=== PATIENT | female | born 1965 | race African-American/Black ===

== ENCOUNTER 2017-08-11 14:18 | Inpatient (IN) | payer OTHER, SELFPAY ==
[2017-08-11 14:51] LABS: Absolute Monocytes 0.8 K/uL (0.1-1.3); Absolute Neutrophil 10.6 K/uL (1.8-8.0); Basophils % 0.8 % (0-1.3); Eosinophils % 0.1 % (0-4.4); Hematocrit 37.4 % (36.0-45.0); Lymphocytes % 8.1 % (15.3-44.8); MCH 29.7 pg (27.0-35.0); MCV 91.3 fL (80-100); MPV 9.9 fL (7.6-11.3); Monocytes % 6.7 % (3.3-12.3)
[2017-08-11 14:56] LABS: Protime INR 1.18
[2017-08-11 15:01] LABS: Bicarbonate 23 mEq/L (21-31); Glucose Level 108 mg/dL (65-120); Sodium Level 136 mEq/L (135-145)
[2017-08-11 15:07] LABS: ALT/SGPT 12 IU/L (10-60); AST/SGOT 21 IU/L (10-42); Albumin 3.4 g/dL (3.2-5.5); Alkaline Phosphatase 110 IU/L (42-121); BUN Blood Urea Nitrogen 5 mg/dL (6-20); Bilirubin Direct 0.2 mg/dL (0-0.2); Bilirubin Total 0.8 mg/dL (0.3-1.2); Magnesium 1.8 mg/dL (1.8-2.5); Protein, Total 8.7 g/dL (6.0-8.3)
--- NOTE | 2017-08-11 15:22 | RAD REPORT ---
EXAM DESCRIPTION: Natalia Single View08/11/2017 3:15 pm CLINICAL HISTORY: Cough COMPARISON: none FINDINGS: Right upper lobe consolidation is present with mild volume loss. The remainder of the lung s appear clear. The heart is normal size IMPRESSION: Right upper lobe consolidation likely representing pneumonia. This should be followed un til it is clear to exclude a post obstructive process/underlying mass
--- NOTE | 2017-08-11 15:49 | EKG ---
Test Date: 2017-08-11 Test Time: 14:49:25 Spring Encaser: MEASUREMENT RESULTS: Intervals: Rate: 109 SC: 166 QRSD: 72 QT: 342 QTc: 460 [place]: P: 68 SC: 166 QRS: 77 T: 70 INTERPRETIVE STATEMENTS: Sinus tachycardia Otherwise normal ECG No previous ECG available for comparison Electronically Signed On 08-11-17 15:48:49 CDT by Tai Parker
[2017-08-11] MEDS ORDERED: Levofloxacin 750mg IV 750 MG/150 ML BAG IV ONE (16:28)
--- NOTE | 2017-08-11 16:31 | ER ---
Nurse's Notes [facility] Name: Laura Morales Age: 52 yrs Sex: Female : 1965 Arrival Date: 08/11/2017 Time: 14:19 Bed 28 Private MD: Diagnosis: Pneumonia due to other specified bacteria;Tuberculosis of lung-possible Presentation: 08/11 14:30 Presenting complaint: Patient states: was seen at urgent care and had CXR done, Health iw dept sent pt to ER for possible TB, pt states they told her it was either cancer, TB or something else. Transition of care: patient was not received from another setting of care. Onset of symptoms was August 11, 2017. Initial Sepsis Screen: Does the patient meet any 2 criteria? No. Patient's initial sepsis screen is negative. Does the patient have a suspected source of infection? No. Patient's initial sepsis screen is negative. Care prior to arrival: None. 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 - Social history:: Smoking status: Patient/guardian denies using tobacco. Screenin:15 Abuse screen: Denies threats or abuse. Denies injuries from another. Nutritional kr2 screening: No deficits noted. Tuberculosis screening: Possible symptoms: recent bloody sputum. Fall Risk IV access (20 points). Assessment: 15:15 General: Appears in no apparent distress. comfortable, well groomed, well developed, kr2 well nourished, Behavior is calm, cooperative, appropriate for age. Pain: Denies pain. Neuro: Level of Consciousness is awake, alert, obeys commands, Oriented to person, place, time, situation. Cardiovascular: Capillary refill < 3 seconds in bilateral fingers Patient's skin is warm and dry. Respiratory: Airway is patent Respiratory effort is even, unlabored, Respiratory pattern is regular, symmetrical, Parent/caregiver reports the patient having cough that is productive, blood in sputum. GI: Abdomen is flat, non-distended. : No signs and/or symptoms were reported regarding the genitourinary system. EENT: Nares are clear bilaterally Oral mucosa is moist. Derm: Skin is intact, is healthy with good turgor, Skin is pink, warm \T\ dry. Musculoskeletal: Circulation, motion, and sensation intact. 16:30 Reassessment: Patient appears in no apparent distress at this time. Patient and/or kr2 family updated on plan of care and expected duration. Pain level reassessed. Patient is alert, oriented x 3, equal unlabored respirations, skin warm/dry/pink. Patient denies pain at this time. 17:39 Reassessment: Patient appears in no apparent distress at this time. Patient and/or kr2 family updated on plan of care and expected duration. Pain level reassessed. Patient is alert, oriented x 3, equal unlabored respirations, skin warm/dry/pink. Patient denies pain at this time. 18:00 Reassessment: Patient appears in no apparent distress at this time. Patient and/or kr2 family updated on plan of care and expected duration. Pain level reassessed. Patient is alert, oriented x 3, equal unlabored respirations, skin warm/dry/pink. Given sandwich and sprite to drink Patient denies pain at this time. 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 19:25 Reassessment: Patient appears in no apparent distress at this time. Patient and/or kr2 family updated on plan of care and expected duration. Pain level reassessed. Patient is alert, oriented x 3, equal unlabored respirations, skin warm/dry/pink. Patient denies pain at this time. 20:33 Reassessment: Patient states she has not been coughing up as much blood this evening. kr2 Vital Signs: 14:41 BP 127 / 88; Pulse 110; Resp 18 S; Pulse Ox 100% on R/A; iw 15:00 BP 121 / 78; Pulse 107; Resp 16; Temp 98.1(O); Pulse Ox 100% on R/A; kr2 16:55 BP 124 / 75; Pulse 97; Resp 16; Temp 98.9(O); Pulse Ox 100% on R/A; kr2 17:40 BP 126 / 76; Pulse 98; Resp 15; Temp 98.5(O); Pulse Ox 99% on R/A; kr2 19:00 BP 117 / 80; Pulse 100; Resp 16; Temp 98.7(O); Pulse Ox 98% on R/A; kr2 20:26 BP 129 / 81; Pulse 109; Resp 15; Temp 99(O); Pulse Ox 100% on R/A; kr2 ED Course: 14:19 Patient arrived in ED. iw 14:25 Isra Corcoran PA is PHCP. jr8 14:25 Avel Hong MD is Attending Physician. jr8 14:25 Inserted saline lock: 20 gauge in right antecubital area, using aseptic technique. jb1 Blood collected. 14:41 Triage completed. iw 14:52 Jackie Hilliard, ERROL is Primary Nurse. kr2 15:00 Airborne Precautions. kr2 15:14 XRAY Chest (1 view) In Process Unspecified. EDMS 15:15 Arm band placed on. kr2 15:15 Patient has correct armband on for positive identification. Bed in low position. Call kr2 light in reach. Side rails up X2. Pulse ox on. NIBP on. Door closed. Warm blanket given. Head of bed elevated. 16:29 Margo Anderson MD is Hospitalizing Provider. jr8 16:48 sputum culture collected and sent to lab. kr2 20:30 No provider procedures requiring assistance completed. Patient admitted, IV remains in kr2 place. Administered Medications: 16:48 Drug: LevaQUIN 750 mg Volume: 150 ml; Route: IVPB; Infused Over: 90 mins; Site: left kr2 antecubital; 18:30 Follow up: Response: No adverse reaction; IV Status: Completed infusion kr2 Outcome: 16:30 Decision to Hospitalize by Provider. jr8 20:30 Admitted to Tele accompanied by tech, via wheelchair, room 417, with chart, Other kr2 Patient with mask on for airborne precautions Report called to ERROL Fuentes 20:30 Condition: stable 20:30 Instructed on the need for admit, Demonstrated understanding of instructions. 20:47 Patient left the ED. kr2 Signatures: Dispatcher [employer] EDMS Alfredo Laureano jb1 Liseth Florez RN RN iw Isra Corcoran PA PA jr8 Jackie Hilliard RN RN kr2 Corrections: (The following items were deleted from the chart) 14:43 14:30 Initial Sepsis Screen: Does the patient meet any 2 criteria? No. Patient's iw initial sepsis screen is negative. Does the patient have a suspected source of infection? No. Patient's initial sepsis screen is negative. iw 20:28 15:00 BP 121 / 78; Pulse 107bpm; Resp 16bpm; Pulse Ox 100% RA; kr2 kr2 20:28 17:40 BP 126 / 76; Pulse 98bpm; Resp 15bpm; Pulse Ox 99% RA; kr2 kr2 20:28 19:25 BP 129 / 81; Pulse 109bpm; Resp 15bpm; Pulse Ox 100% RA; kr2 kr2 08/12 01:24 08/11 16:55 BP 124 / 75; Pulse 97bpm; Resp 16bpm; Pulse Ox 100% RA; kr2 kr2 08/12 01:24 08/11 19:00 BP 117 / 80; Pulse 100bpm; Resp 16bpm; Pulse Ox 98% RA; kr2 kr2
--- NOTE | 2017-08-11 16:31 | EDPHYS ---
Physician Documentation [facility] Name: Laura Morales Age: 52 yrs Sex: Female : 1965 Arrival Date: 08/11/2017 Time: 14:19 Bed 28 Private MD: ED Physician Avel Hong HPI: 08/11 16:14 This 52 yrs old Black Female presents to ER via Ambulatory with complaints of Cough. jr8 16:14 The patient or guardian reports cough, that is intermittent, described as moderate, jr8 with productive sputum, that is bloody. Onset: The symptoms/episode began/occurred gradually, 4 week(s) ago. Severity of symptoms: At their worst the symptoms were moderate, in the emergency department the symptoms are unchanged. Modifying factors: The symptoms are alleviated by nothing, the symptoms are aggravated by nothing. Associated signs and symptoms: The patient has no apparent associated signs or symptoms. The patient has not experienced similar symptoms in the past. The patient has been recently seen by a physician:. Patient stated that she was diagnosed with influenza about 4 weeks ago. Had gotten over illness but still has had cough since then. Yesterday she noticed after coughing that she had blood in sputum. Continued to have bloody sputum today. Went to [place] and had blood work and CT done. Differential given was TB vs pneumonia vs mass. Patient stated that she had possible positive PPD in the 80s but had CXR done at that same time with negative results. 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 Last one was 1 year ago . 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 - Social history:: Smoking status: Patient/guardian denies using tobacco. ROS: 16:14 Eyes: Negative for injury, pain, redness, and discharge, ENT: Negative for injury, jr8 pain, and discharge, Neck: Negative for injury, pain, and swelling, Cardiovascular: Negative for chest pain, palpitations, and edema, Abdomen/GI: Negative for abdominal pain, nausea, vomiting, diarrhea, and constipation, Back: Negative for injury and pain, MS/Extremity: Negative for injury and deformity, Skin: Negative for injury, rash, and discoloration, Neuro: Negative for headache, weakness, numbness, tingling, and seizure. 16:14 Respiratory: Positive for cough, hemoptysis, Negative for dyspnea on exertion, shortness of breath. Exam: 16:14 Head/Face: Normocephalic, atraumatic. Eyes: Pupils equal round and reactive to light, jr8 extra-ocular motions intact. Lids and lashes normal. Conjunctiva and sclera are non-icteric and not injected. Cornea within normal limits. Periorbital areas with no swelling, redness, or edema. ENT: Nares patent. No nasal discharge, no septal abnormalities noted. Tympanic membranes are normal and external auditory canals are clear. Oropharynx with no redness, swelling, or masses, exudates, or evidence of obstruction, uvula midline. Mucous membranes moist. Neck: Trachea midline, no thyromegaly or masses palpated, and no cervical lymphadenopathy. Supple, full range of motion without nuchal rigidity, or vertebral point tenderness. No Meningismus. Cardiovascular: Regular rate and rhythm with a normal S1 and S2. No gallops, murmurs, or rubs. Normal PMI, no JVD. No pulse deficits. Respiratory: Lungs have equal breath sounds bilaterally, clear to auscultation and percussion. No rales, rhonchi or wheezes noted. No increased work of breathing, no retractions or nasal flaring. Abdomen/GI: Soft, non-tender, with normal bowel sounds. No distension or tympany. No guarding or rebound. No evidence of tenderness throughout. Back: No spinal tenderness. No costovertebral tenderness. Full range of motion. Skin: Warm, dry with normal turgor. Normal color with no rashes, no lesions, and no evidence of cellulitis. MS/ Extremity: Pulses equal, no cyanosis. Neurovascular intact. Full, normal range of motion. Neuro: Awake and alert, GCS 15, oriented to person, place, time, and situation. Cranial nerves II-XII grossly intact. Motor strength 5/5 in all extremities. Sensory grossly intact. Cerebellar exam normal. Normal gait. Vital Signs: 14:41 BP 127 / 88; Pulse 110; Resp 18 S; Pulse Ox 100% on R/A; iw 15:00 BP 121 / 78; Pulse 107; Resp 16; Temp 98.1(O); Pulse Ox 100% on R/A; kr2 16:55 BP 124 / 75; Pulse 97; Resp 16; Temp 98.9(O); Pulse Ox 100% on R/A; kr2 17:40 BP 126 / 76; Pulse 98; Resp 15; Temp 98.5(O); Pulse Ox 99% on R/A; kr2 19:00 BP 117 / 80; Pulse 100; Resp 16; Temp 98.7(O); Pulse Ox 98% on R/A; kr2 20:26 BP 129 / 81; Pulse 109; Resp 15; Temp 99(O); Pulse Ox 100% on R/A; kr2 MDM: 14:25 Patient medically screened. jr8 16:18 Data reviewed: vital signs, nurses notes, diagnostic data from outside facility, lab jr8 test result(s), EKG, radiologic studies, CT scan, plain films, and as a result, I will admit patient. Data interpreted: Pulse oximetry: on room air is 100 %. Interpretation: normal. Counseling: I had a detailed discussion with the patient and/or guardian regarding: the historical points, exam findings, and any diagnostic results supporting the discharge/admit diagnosis, lab results, radiology results, the need for further work-up and treatment in the hospital. 16:29 Physician consultation: Margo Anderson MD was called at 16:29, was contacted at 16:29, jr8 regarding admission, to the telemetry unit. consult, patient's condition, and will see patient. 08/11 14:32 Order name: Basic Metabolic Panel; Complete Time: :08/11 14:32 Order name: BNP; Complete Time: 15:08/11 14:32 Order name: CBC with Diff; Complete Time: 15:08/11 14:32 Order name: LFT's; Complete Time: 15: 08/11 14:32 Order name: Magnesium; Complete Time: 15: 08/11 14:32 Order name: PT-INR; Complete Time: 15:08/11 14:32 Order name: Ptt, Activated; Complete Time: 15: 08/11 14:32 Order name: Troponin (emerg Dept Use Only); Complete Time: 15:08/11 14:32 Order name: XRAY Chest (1 view); Complete Time: 15:25 [facility] 08/11 14:38 Order name: Blood Culture Adult (2) [facility] 08/11 16:06 Order name: Sputum Culture [facility] 08/11 16:31 Order name: Acid Fast Bacilli Culture [facility] 08/11 20:42 Order name: Urine Dipstick--Ancillary (enter results) 08/11 14:32 Order name: IV; Complete Time: 14:53 [facility] 08/11 14:32 Order name: EKG; Complete Time: 14:33 [facility] 08/11 14:32 Order name: Cardiac monitoring; Complete Time: 14:53 [facility] 08/11 14:32 Order name: EKG - Nurse/Tech; Complete Time: 17:42 [facility] 08/11 14:32 Order name: Labs collected and sent; Complete Time: 14:53 [facility] 08/11 14:32 Order name: O2 Per Protocol; Complete Time: 14:53 [facility] 08/11 14:32 Order name: O2 Sat Monitoring; Complete Time: 14:53 [facility] Administered Medications: 16:48 Drug: LevaQUIN 750 mg Volume: 150 ml; Route: IVPB; Infused Over: 90 mins; Site: left kr2 antecubital; 18:30 Follow up: Response: No adverse reaction; IV Status: Completed infusion kr2 Disposition: 08/11/17 16:30 Hospitalization ordered by Margo Anderson for Inpatient Admission. Preliminary diagnosis are Pneumonia due to other specified bacteria, Tuberculosis of lung - possible. - Bed requested for Telemetry/MedSurg (Inpatient). - Status is Inpatient Admission. kr2 - Condition is Stable. - Problem is new. - Symptoms are unchanged. UTI on Admission? No Addendum: 08/26/2017 19:56 Co-signature as Attending Physician, Avel Hong MD I agree with the assessment and k dr plan of care. Signatures: Dispatcher [employer] [facility] Shantel Kaur Kevin, MD MD [facility] Isra Corcoran PA PA jr8 Maribel Hanley RN RN Jackie Carter RN RN kr2 Corrections: (The following items were deleted from the chart) 08/11 16:18 16:14 Patient stated that she was diagnosed with influenza about 4 weeks ago. Had 8 gotten over illness but still has had cough since then. Yesterday she noticed after coughing that she had blood in sputum. Continued to have bloody sputum today. Went to [facility] and had blood work and CT done. Differential given was TB vs pneumonia vs mass . jr8 16:31 16:13 Miscellaneous Lab Test+R.LAB.BRZ ordered. EDMS EDMS 16:51 16:30 Hospitalization Ordered by Margo Anderson MD for Inpatient Admission. Preliminary bd diagnosis is Pneumonia due to other specified bacteria; Tuberculosis of lung - possible. Bed requested for Telemetry/MedSurg (Inpatient). Status is Inpatient Admission. Condition is Stable. Problem is new. Symptoms are unchanged. UTI on Admission? No. jr8 18:25 16:51 08/11/2017 16:30 Hospitalization Ordered by Margo Anderson MD for Inpatient df Admission. Preliminary diagnosis is Pneumonia due to other specified bacteria; Tuberculosis of lung - possible. Bed requested for Telemetry/MedSurg (Inpatient). Status is Inpatient Admission. Condition is Stable. Problem is new. Symptoms are unchanged. UTI on Admission? No. bd 20:47 18:25 08/11/2017 16:30 Hospitalization Ordered by Margo Anderson MD for Inpatient kr2 Admission. Preliminary diagnosis is Pneumonia due to other specified bacteria; Tuberculosis of lung - possible. Bed requested for Telemetry/MedSurg (Inpatient). Status is Inpatient Admission. Condition is Stable. Problem is new. Symptoms are unchanged. UTI on Admission? No. df
[2017-08-11] MEDS ORDERED: ONDANSETRON 4 MG/2 ML VIAL IV PRN (21:04)
[2017-08-11] MEDS ORDERED: VANCOMYCIN 1.25 GM in NA CHLORIDE 0.9% 250 ML IV SCH (21:04)
[2017-08-11] MEDS ORDERED: CEFEPIME 2 GM VIAL IV SCH (21:04)
[2017-08-11] MEDS ORDERED: ALBUTEROL 2.5 MG/3 ML NEB SOL NEB PRN (21:04)
[2017-08-11] MEDS ORDERED: IPRATROPIUM BROM 0.5MG/2.5ML NEB PRN (21:04)
[2017-08-11] MEDS ORDERED: VANCOMYCIN 1 GM/VIAL ONE (21:36)
[2017-08-11] MEDS ORDERED: NA CHLORIDE 0.9% 250 ML ONE (21:37)
[2017-08-11] MEDS ORDERED: CEFEPIME 2 GM/200 ML BAG IV ONE (21:37)
[2017-08-11] MEDS ORDERED: VANCOMYCIN 500 MG/VIAL ONE (21:38)
[2017-08-11] MEDS: VANCOMYCIN 1.25 GM in NA CHLORIDE 0.9% 250 ML IV SCH (22:00)
[2017-08-11] MEDS: NA CHLORIDE 0.9% 1,000 ML IV SCH (22:01)
[2017-08-11] MEDS ORDERED: CEFEPIME 2 GM/100 ML BAG IV ONE (23:00)
[2017-08-11 23:02] VITALS: BMI 25.6
--- NOTE | 2017-08-12 03:52 | HP ---
Date of Admission: 08/11/2017 Chief Complaint: Shortness of breath and sent from [place] [facility] for a right upper lobe conso lidation and hemoptysis. [employer] Senior Specialist: Calvin Cr M.D., Pulmonology. History Of Present Illness: The patient is a 52-year-old female with no significant past medical his tory other than nicotine dependence, who comes in with 1 month of dry cough that has been persistent. The patient states that she was diagnosed with flu; at that time, was treated; and since then, has not had any relief from her cough. She has tried multiple medications including antibiotics and over -the-counter medications. She denies any significant shortness of breath, fever, chills, or any ill contacts. 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 The patient did have some ep isode of hemoptysis, tablespoonful, which prompted her to come to the ER. The patient initially went to the [place] [facility]. She came in as her symptoms were constant, moderate, and progressively worsening. No alleviating or aggravating factors. At [place], CT scan was done, which showed a large right-sided consolidation. The patient was, therefore, transferred to [facility] for further ayan luation. Upon arrival, the patient's vital signs were stable. She was afebrile. Her O2 saturations were 100%. Her workup was essentially negative. White count was mildly elevated at 12.5 with neutr ophilia. Repeat chest x-ray did show a right-sided consolidation of the upper lobe. The patient was then started on IV antibiotics and referred for admission. When the patient was seen in the ER, she was awake, alert, oriented x3, in some mild distress. Past Medical History: None. Past Surgical History: None. Allergies: NO KNOWN DRUG ALLERGIES. Medications: None. Family History: Hypertension and diabetes. Father of lung cancer. Heart disease and hypertens ion also run in the family. Social History: The patient smokes half a pack of cigarettes per day for the past 30 years. Does re port occasional beer, not a daily drinker. No illicit drug use. Review of Systems: An 11-point system reviewed and negative except as per HPI. Physical Examination: Vital Signs: Blood pressure 127/88, pulse 110, respirations 18, and O2 100% on room air. General: Awake, alert, and oriented x3, in some mild distress. HEENT: Normocephalic, atraumatic. PERRLA. EOMI. Moist mucous membranes. Oropharynx is clear. Co njunctivae are anicteric. Neck: Supple. No JVD. Trachea midline. CV: S1, S2. Sinus tachycardia. Peripheral pulses present. No murmurs. Respiratory: Diminished breath sounds, right upper lobe. Otherwise, moving air well. No wheezing. No rhonchi. No crackles. Gastrointestinal: Abdomen is soft, nontender, and nondistended. Positive bowel sounds. No guarding or rigidity. Extremities: No clubbing, cyanosis, or edema. No calf tenderness. Neurologic: Cranial nerves 2 through 12 are intact grossly. No focal neurological deficit. Speech is normal. Strength is 5/5, bilateral upper and lower extremities. Skin: No rashes. Normal skin turgor. Psychiatric: Mood is good. Affect is full. Insight and judgment are good. Laboratory Data: WBC 12.5, H and H 12.2 and 37.4, platelets 452, and neutrophils 84%. INR 1.18. So dium 136, potassium 4, chloride 99, CO2 of 23, BUN 5, creatinine 0.75, glucose 108, calcium 9.3, and magnesium 1.8. Troponin less than 0.03. BNP 27. Albumin 3.4. Chest x-ray, personally reviewed, sh ows right upper lobe consolidation, likely representing pneumonia. EKG; rate of 109, sinus tachycard ia. No previous EKG for comparison. Assessment And Plan: A 52-year-old female with; 1.Right upper lobe pneumonia, possible tuberculosis. 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 However, her chest x-r ay and yearly chest x-rays subsequently have been negative. She does not have any risk factors such as travel to endemic countries or being in intermediate. 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 Th erefore, she is at risk. We will keep the patient in isolation, obtain acid-fast bacilli x3. We jessie l obtain Pulmonology consultation. We will start patient on broad-spectrum IV antibiotics to include methicillin-resistant Staphylococcus aureus and Pseudomonas coverage with cefepime and vancomycin. We will obtain serial x-rays for improvement. 2.Nicotine dependence with cigarette smoking, counseled. 3.Hemoptysis, likely secondary to consolidation, which may be mass versus tuberculosis versus cavita ry lesion. 4.Gastrointestinal and deep venous thrombosis prophylaxis with PPI and SCDs. No chemical anticoagul ation due to hemoptysis. Plan to admit the patient to Med-Surg, place as inpatient, on negative airway pressure. /CURT Voice ID: [id number]
[2017-08-12 05:28] LABS: Basophils % 0.8 % (0-1.3); Eosinophils % 0.6 % (0-4.4); Hematocrit 32.9 % (36.0-45.0); Lymphocytes % 12.2 % (15.3-44.8); MCV 91.2 fL (80-100); MPV 9.8 fL (7.6-11.3); RBC Red Blood Cell Count 3.61 M/uL (3.86-4.86)
[2017-08-12 05:38] LABS: ALT/SGPT 10 IU/L (10-60); AST/SGOT 16 IU/L (10-42); Albumin 2.5 g/dL (3.2-5.5); Alkaline Phosphatase 88 IU/L (42-121); BUN Blood Urea Nitrogen 7 mg/dL (6-20); Bicarbonate 28 mEq/L (21-31); Bilirubin Total 0.5 mg/dL (0.3-1.2); Glucose Level 98 mg/dL (65-120); Potassium 4.9 mEq/L (3.6-5.0); Protein, Total 6.6 g/dL (6.0-8.3); Sodium Level 138 mEq/L (135-145)
[2017-08-12] MEDS: PANTOPRAZOLE 40MG TABLET PO SCH (06:47)
[2017-08-12] MEDS: NA CHLORIDE 0.9% 1,000 ML IV SCH (07:17)
[2017-08-12] MEDS ORDERED: CEFEPIME 2 GM VIAL IV SCH (08:00)
[2017-08-12] MEDS ORDERED: CEFEPIME 2 GM/100 ML BAG IV SCH (08:00)
[2017-08-12] MEDS ORDERED: CEFEPIME/SWI 2gm 2 GM/20 ML SYR IVP SCH (09:00)
[2017-08-12] MEDS: VANCOMYCIN 1.25 GM in NA CHLORIDE 0.9% 250 ML IV SCH (09:33)
--- NOTE | 2017-08-12 09:44 | P.CNS ---
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[place] has been complaining about a chronic cough since February last year she has been taking over-the- counter medication did not seek any medical help yesterday patient has some hemoptysis he came to [facility] and was later sent here to the hospital denies any he exhales have lost some weight denies any chest pain no other medical problems patient was found to have right upper lobe consolidation currently she is doing well Allergies No Known Allergies Allergy (Unverified 08/11/17 20:51) Home Medications: NK [No Home Meds] 08/11/17 - Past Medical/Surgical History Diabetic: No Past Medical History: Patient denies medical history - Social History Alcohol use: Yes CD- Drugs: No Caffeine use: No Place of Residence: Home Review of Systems 10-point ROS is otherwise unremarkable Respiratory: Cough, Hemoptysis Physical Examination Temp Pulse Resp BP Pulse Ox 100.3 F 86 16 145/71 H 98 08/12/17 08:00 08/12/17 08:00 08/12/17 08:00 08/12/17 08:00 08/12/17 08:00 General: Alert, Oriented x3 Neck: Supple Respiratory: Crackles/rales (Crackles in the right upper zone) Cardiovascular: No edema, Regular rate/rhythm Gastrointestinal: Normal bowel sounds, Soft and benign Laboratory Data (last 24 hrs) 08/11/17 14:40: PT 14.0 H, INR 1.18, APTT 26.7 08/11/17 14:40: WBC 12.5 H, Hgb 12.2, Hct 37.4, Plt Count 453 H 08/11/17 14:40: B-Natriuretic Peptide 27 08/11/17 14:40: Sodium 136, Potassium 4.0, BUN 5 L, Creatinine 0.75, Glucose 108 , Magnesium 1.8, Total Bilirubin 0.8, AST 21, ALT 12, Alkaline Phosphatase 110 - Problems (1) Pneumonia Current Visit: Yes Status: Acute Plan: Patient is 52 years of age admitted with a chronic cough since February admission precipitated by an episode of hemoptysis he is currently doing well denies any fever has some weight loss in the past CT scan shows a dense right upper lobe consolidation doubt tuberculosis patient's white count is only minimally elevated chemistries unremarkable patient will need a bronchoscopy discuss with the patient the risks and benefit include bleeding infection lung collapse and she agrees Qualifiers: Pneumonia type: due to unspecified organism
[2017-08-12] MEDS: PIPER/TAZO/NS 3.375gm 3.375 GM/100 ML BAG IVPB SCH ×2 (13:17→17:11)
--- NOTE | 2017-08-12 16:13 | PN ---
Date of Progress Note: 08/12/2017 Subjective: The patient seen and examined. Chart reviewed. Case discussed with RN and Dr. Cr. The patient denies any shortness of breath. Still reports some hemoptysis, blood mixed in with sputum. Review of Systems: Negative except as above. Medications: Reviewed. Physical Examination: Vital signs: T-max 100.3, heart rate 86, blood pressure 145/71, respirations 16 , O2 98% on room air. General: Awake, alert, oriented x3. Not in acute distress. CV: S1, S2. No murmurs. Regular rate and rhythm. Peripheral pulses present. Respiratory: Diminished breath sounds at the right upper lobe, moving air well , but otherwise no wheezing or crackles. Gastrointestinal: Abdomen is soft, nontender, nondistended. Positive bowel sounds. No guarding or rigidity. Extremities: No clubbing, cyanosis, or edema. Neurologic: Nonfocal. Laboratory Data: Sodium 138, potassium 4.9, chloride 103, CO2 28, BUN 7, creatinine 0.73, glucose 98, calcium 9.1, albumin 2.5. WBC 8.1, H and H 10.8 and 32.9, platelets 345, neutrophils 74%. AFB smear pending. Blood cultures and sputum culture also pending. Assessment: A 52-year-old female with: 1. Right upper lobe pneumonia, consolidation, rule out tuberculosis. AFB smear x3 pending. The patient on negative air room isolation. Appreciate Dr. Cr's input. We will continue with broad-spectrum IV antibiotics. 2. Hemoptysis may be secondary to pneumonia versus tuberculosis versus possible mass. The patient will undergo for bronchoscopy on Monday. 3. Nicotine dependence with cigarette smoking. Counseled. 4. Gastrointestinal and deep venous thrombosis prophylaxis. PPI and SCD. 5. Moderate protein-calorie malnutrition. Albumin is 2.5. Plan: Bronchoscopy on Monday. Follow up on AFB smears. Continue isolation. The patient has a strong history of smoking and Family history of lung cancer - mass may be malignancy with resultant hemoptysis likely. /CURT Voice ID: [id number] Report ID: [id number] FADI
[2017-08-12] MEDS: guaiFENesin 100 MG/5 ML UCUP PO PRN (22:00)
[2017-08-13] MEDS: PIPER/TAZO/NS 3.375gm 3.375 GM/100 ML BAG IVPB SCH ×3 (00:06→17:49)
[2017-08-13 06:20] LABS: Absolute Lymphocytes (CBC) 0.8 K/uL (0.7-4.9); Absolute Monocytes 0.7 K/uL (0.1-1.3); Absolute Neutrophil 5.5 K/uL (1.8-8.0); Eosinophils % 0.7 % (0-4.4); Hematocrit 32.7 % (36.0-45.0); Lymphocytes % 10.9 % (15.3-44.8); MCH 29.9 pg (27.0-35.0); MCV 92.3 fL (80-100); MPV 9.9 fL (7.6-11.3); Monocytes % 10.1 % (3.3-12.3); RBC Red Blood Cell Count 3.55 M/uL (3.86-4.86)
[2017-08-13 06:28] LABS: ALT/SGPT 11 IU/L (10-60); AST/SGOT 18 IU/L (10-42); Albumin 1.9 g/dL (3.2-5.5); Alkaline Phosphatase 79 IU/L (42-121); BUN Blood Urea Nitrogen 8 mg/dL (6-20); Bicarbonate 26 mEq/L (21-31); Bilirubin Total 0.8 mg/dL (0.3-1.2); Glucose Level 107 mg/dL (65-120); Potassium 4.2 mEq/L (3.6-5.0); Protein, Total 5.9 g/dL (6.0-8.3); Sodium Level 131 mEq/L (135-145)
[2017-08-13] MEDS: PANTOPRAZOLE 40MG TABLET PO SCH (06:59)
[2017-08-13 08:25] LABS: Magnesium 1.7 mg/dL (1.8-2.5)
[2017-08-13] MEDS ORDERED: NA CHLORIDE 0.9% 500 ML ONE (10:35)
[2017-08-13] MEDS ORDERED: MAGNESIUM SULFATE 1 gm IVPB 1 GM/100 ML BAG IV ONE (11:00)
[2017-08-13] MEDS: ACETAMINOPHEN 500 MG TAB PO PRN (12:14)
[2017-08-13] MEDS: guaiFENesin 100 MG/5 ML UCUP PO PRN (12:14)
[2017-08-13] MEDS: VANCOMYCIN 1.25 GM in NA CHLORIDE 0.9% 250 ML IVPB SCH ×2 (12:14→23:25)
--- NOTE | 2017-08-13 14:37 | PN ---
Date of Progress Note: 08/11/2017 Subjective: The patient seen and examined, chart reviewed, and case discussed with RN and Dr. Abner stratton. The patient feels better. Still having some cold. The patient did have a fever of 100.7, this morning. No chills. Hemoptysis has improved. Review of Systems: Negative except as above. Medications: Reviewed. Physical Examination: Vital Signs: Temperature 100.7, heart rate 79, blood pressure 139/69, respirations 16, O2 of 100% on room air. General: Awake, alert, oriented x3. Denied any acute distress. CVS: S1, S2. Regular rate and rhythm rate and rhythm. Peripheral pulses present. Respiratory: Diminished breath sounds at the right upper lobe, otherwise moving air well. No wheezi ng or rhonchi. Gastrointestinal: Abdomen is soft, nontender, nondistended. Positive bowel sounds. Extremities: No clubbing, cyanosis, edema. Neurologic: Nonfocal. Laboratory Data: Sodium 131, potassium 4.2, chloride 100, CO2 of 26, BUN 8, creatinine 0.7, calcium 8.6, magnesium 1.7, albumin 1.9. WBC 7.1, H and H are 10.6 and 32.7, platelets 296. AFB smear is pe nding. Blood cultures no growth to date. Sputum culture prelim shows 2+ Staph, coagulase positive S taph aureus. Assessment And Plan: A 52-year-old female with: 1.Right upper lobe pneumonia and consolidation, rule out tuberculosis. AFB smear collected x2. The patient is on negative air pressure room. We will continue isolation. Vancomycin was discontinued yesterday. However, her sputum culture showing Staph coagulase positive and the patient continued to be febrile. We will add vancomycin to the regimen. 2.Hemoptysis, possibly secondary to pneumonia versus tuberculosis or possible mass. The patient villegas s have history of smoking and family history of lung cancer. The patient will undergo for bronchosco py on Monday by Dr. Cr. 3.Nicotine dependence with cigarette smoking, uncomplicated. 4.Gastrointestinal and deep venous thrombosis prophylaxis with PPI and SCDs. 5.Severe protein-calorie malnutrition. Albumin 1.9. We will supplement with protein shakes. Plan: Bronchoscopy in a.m. Follow up on AFB smears and vancomycin. SA/MODL Voice ID: [id number] Report ID: [id number]
[2017-08-13] MEDS: ENSURE ENLIVE 237 ML CAN PO SCH (20:21)
[2017-08-13] MEDS ORDERED: VANCOMYCIN 1.5 GM in NA CHLORIDE 0.9% 500 ML IVPB SCH (21:00)
[2017-08-14] MEDS: PIPER/TAZO/NS 3.375gm 3.375 GM/100 ML BAG IVPB SCH ×3 (03:43→20:49)
[2017-08-14 04:15] LABS: Hematocrit 32.1 % (36.0-45.0); Lymphocytes % 12.5 % (15.3-44.8); RBC Red Blood Cell Count 3.49 M/uL (3.86-4.86)
[2017-08-14 04:16] LABS: Absolute Lymphocytes (CBC) 0.9 K/uL (0.7-4.9); Absolute Monocytes 0.9 K/uL (0.1-1.3); Absolute Neutrophil 5.6 K/uL (1.8-8.0); Basophils % 0.8 % (0-1.3); Eosinophils % 1.4 % (0-4.4); Monocytes % 11.4 % (3.3-12.3)
[2017-08-14 04:38] LABS: ALT/SGPT 13 IU/L (10-60); AST/SGOT 23 IU/L (10-42); Albumin 2.6 g/dL (3.2-5.5); Alkaline Phosphatase 71 IU/L (42-121); BUN Blood Urea Nitrogen 7 mg/dL (6-20); Bicarbonate 27 mEq/L (21-31); Bilirubin Total 0.6 mg/dL (0.3-1.2); Glucose Level 96 mg/dL (65-120); Magnesium 1.6 mg/dL (1.8-2.5); Potassium 3.9 mEq/L (3.6-5.0); Protein, Total 6.7 g/dL (6.0-8.3); Sodium Level 134 mEq/L (135-145)
[2017-08-14] MEDS: PANTOPRAZOLE 40MG TABLET PO SCH (06:20)
[2017-08-14] MEDS ORDERED: GLYCOPYRROLATE 0.2 MG/ML SYR ONE ×2 (07:56→07:57)
[2017-08-14] MEDS ORDERED: Phenylephrine HCl 10 MG/ML 1 ML VIAL ONE ×2 (07:56)
[2017-08-14] MEDS ORDERED: LIDOCAINE VISCOUS 2% SOLN 15 ML UDC ONE (07:58)
[2017-08-14] MEDS ORDERED: LIDOCAINE 4% TOP SOLUTION ONE (07:58)
[2017-08-14] MEDS ORDERED: LIDOCAINE 1% MPF 5 ML VIAL ONE ×2 (08:16→08:46)
[2017-08-14] MEDS ORDERED: PROPOFOL 200 MG/20 ML VIAL IV ONE ×2 (08:16→08:46)
[2017-08-14] MEDS ORDERED: Ringers Lactate 1,000 ML IV ONE (08:16)
[2017-08-14] MEDS ORDERED: LIDOCAINE 1% 20 ML MDV ONE (08:27)
[2017-08-14] MEDS ORDERED: MAGNESIUM SULFATE 1 gm IVPB 1 GM/100 ML BAG IV ONE (09:00)
[2017-08-14] MEDS ORDERED: POTASSIUM CL SA 10 MEQ TAB PO ONE (09:00)
[2017-08-14] MEDS: ENSURE ENLIVE 237 ML CAN PO SCH ×2 (09:00→20:49)
--- NOTE | 2017-08-14 10:42 | RAD REPORT ---
EXAM DESCRIPTION: RAD - Chest Single View - 08/14/2017 10:36 am CLINICAL HISTORY: Post bronchoscopy chest film COMPARISON: August 11 TECHNIQUE: AP portable chest image was obtained 1023 hours . FINDINGS: No pneumothorax. Right upper lobe opacification has not changed. No new or enlarging pleur al fluid collection. Cardiomediastinal silhouette is stable. Trachea is midline. IMPRESSION: No post bronchoscopy pneumothorax.
--- NOTE | 2017-08-14 10:46 | RAD REPORT ---
EXAM DESCRIPTION: RAD - FLUORO-GUIDE FOR BRONCH UPT1HR - 08/14/2017 9:19 am CLINICAL HISTORY: Bronchoscopy. FINDINGS: Three fluoroscopic spot images demonstrate a bronchoscope overlying the right lung. The ex amination was performed by Dr. Cr. Please refer to his report for additional findings.
[2017-08-14] MEDS: VANCOMYCIN 1.25 GM in NA CHLORIDE 0.9% 250 ML IVPB SCH ×2 (12:00→17:05)
--- NOTE | 2017-08-14 12:29 | P.OP ---
Date of Service: 08/14/17 (Bronchoscopy with transbronchial biopsy and BAL) Findings and Operative Technique Findings and Operative Technique Patient is 60 years of age evaluated by me for a chronic cough with the recent hemoptysis active smoker hence the reason for bronchoscopy Narrative report after obtaining informed consent from the patient she was premedicated by anesthesia Findings normal bronchoscopy normal trachea nevin no endobronchial lesions visible Multiple biopsies were performed from the right upper lobe including a BAL Patient initially had some nosebleed that resolved postoperative chest x-ray did not show any evidence of pneumothorax
--- NOTE | 2017-08-14 14:36 | P.PN ---
Subjective Date of Service: 08/14/17 Chief Complaint: Cough hemoptysis abnormal x-ray The patient feels better today, no fever, no chills. Physical Examination - Vital Signs Temperature: 97.3 F Blood Pressure: 155/76 Pulse: 84 Respirations: 18 Pulse Ox (%): 96 - Physical Exam General: Alert, In no apparent distress HEENT: Atraumatic, PERRLA, EOMI Neck: Supple, JVD not distended Respiratory: Normal air movement, Crackles/rales (right meddle field crackles) Cardiovascular: Regular rate/rhythm, Normal S1 S2 Gastrointestinal: Normal bowel sounds, No tenderness Musculoskeletal: No tenderness Integumentary: No rashes Neurological: Normal speech, Normal tone, Normal affect - Studies Medications List Reviewed: Yes Assessment And Plan - Current Problems (Diagnosis) (1) Hemoptysis Onset Date: 08/14/17 Current Visit: Yes Status: Acute (2) Nicotine dependence Onset Date: 08/14/17 Current Visit: Yes Status: Acute Qualifiers: Nicotine product type: cigarettes Substance use status: unspecified nicotine-induced disorder Qualified Code(s): F17.219 - Nicotine dependence, cigarettes, with unspecified nicotine-induced disorders (3) Pneumonia Onset Date: 08/14/17 Current Visit: Yes Status: Acute Qualifiers: Pneumonia type: due to unspecified organism Laterality: right Lung location: upper lobe of lung Qualified Code(s): J18.1 - Lobar pneumonia, unspecified organism - Plan #1 right upper lobe pneumonia: no fever today, WBC remain WNL, she had a bronch , awaiting biopsy and bronchial lavage report. Sputum culture report gram positive cocci. On Vancomycin IV. Acid fast culture is still pending. #2 hemoptysis: is improving, continue monitoring.
[2017-08-15] MEDS: VANCOMYCIN 1.25 GM in NA CHLORIDE 0.9% 250 ML IVPB SCH ×2
[2017-08-15] MEDS: PIPER/TAZO/NS 3.375gm 3.375 GM/100 ML BAG IVPB SCH (03:12)
[2017-08-15] MEDS: ACETAMINOPHEN 500 MG TAB PO PRN (03:19)
[2017-08-15 05:00] LABS: Absolute Lymphocytes (CBC) 0.9 K/uL (0.7-4.9); Absolute Monocytes 0.7 K/uL (0.1-1.3); Absolute Neutrophil 6.8 K/uL (1.8-8.0); Basophils % 0.6 % (0-1.3); Eosinophils % 0.3 % (0-4.4); Hematocrit 32.7 % (36.0-45.0); Lymphocytes % 10.5 % (15.3-44.8); MCV 91.3 fL (80-100); MPV 10.3 fL (7.6-11.3); Monocytes % 8.4 % (3.3-12.3); RBC Red Blood Cell Count 3.58 M/uL (3.86-4.86)
[2017-08-15 05:02] LABS: BUN Blood Urea Nitrogen 5 mg/dL (6-20); Bicarbonate 25 mEq/L (21-31); Glucose Level 94 mg/dL (65-120); Magnesium 1.8 mg/dL (1.8-2.5); Potassium 4.2 mEq/L (3.6-5.0); Sodium Level 133 mEq/L (135-145)
[2017-08-15] MEDS: PANTOPRAZOLE 40MG TABLET PO SCH (05:44)
[2017-08-15] MEDS ORDERED: MAGNESIUM SULFATE 1 gm IVPB 1 GM/100 ML BAG IV ONE (08:00)
[2017-08-15] MEDS: ENSURE ENLIVE 237 ML CAN PO SCH ×2 (09:00→20:32)
[2017-08-15] MEDS: PYRAZINAMIDE 500 MG TAB PO SCH (11:07)
[2017-08-15] MEDS: levoFLOXacin 750 MG TAB PO SCH (11:08)
[2017-08-15] MEDS: guaiFENesin 100 MG/5 ML UCUP PO PRN (11:08)
--- NOTE | 2017-08-15 14:34 | CON ---
History Of Present Illness: This is a 52-year-old female, who came in with right upper lobe pneumoni a and possible tuberculosis. The patient has AFB positive. She has dry cough for 1 month and weight loss, nicotine dependence. 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 Past Medical History: None. Past Surgical History: None. Allergies: NO ALLERGIES. Medications: Four-drug antituberculosis treatment is already being initiated. Social History: Tobacco positive for 1/2 pack per day for 30 years. Review of Systems: A 10-point review was performed. Physical Examination: General: This is a 52-year-old female, lying in bed, not in any acute cardiopulmonary distress. Vital Signs: Temperature 98, pulse 90, respirations 18, blood pressure 147/66. HEENT: Unremarkable. Neck: Supple. Lungs: Clear to auscultation. Heart: S1, S2. Regular. Abdomen: Soft, nontender. Bowel sounds positive. Extremities: No edema. Laboratory Data: Shows WBC noted 12.5 down to 8.5, hemoglobin 10.7, platelets 305. Chemistry shows sodium 133, potassium 4.2, chloride 101, bicarb 25, BUN 5, creatinine 0.65, glucose is 94. Liver fun ction test shows AST 23, ALT 13, bilirubin is 0.6, albumin is 2.6. Chest x-ray shows right upper lob e infiltrate. AFB positive on sputum smear, full culture pending. Bronch cultures are pending. Assessment And Plan: Right upper lobe pneumonia with AFB positive, most likely pulmonary tuberculosi s. Agree with continuing 4-drug treatment for 2 months and then pending culture results, then switch ing to 2-drug if tuberculosis cultures are positive for a total of 6-month course and repeat AFB afte r 4 weeks. Continue antibiotic and supportive care. We will follow the patient closely. Thank you Dr. Fuentes for consult. Please inform Health Department and adoption social worker for the patien tRuth WHALEN/CURT Voice ID: [id number] Report ID: [id number]
--- NOTE | 2017-08-15 14:44 | P.PN ---
Subjective Date of Service: 08/15/17 Chief Complaint: Cough hemoptysis abnormal x-ray The patient has been informed that she has TB. No fever overnight. Physical Examination - Vital Signs Temperature: 98.3 F Blood Pressure: 105/59 Pulse: 92 Respirations: 18 Pulse Ox (%): 100 - Physical Exam General: Alert, In no apparent distress HEENT: Atraumatic, PERRLA, EOMI Neck: Supple, JVD not distended Respiratory: Normal air movement, Crackles/rales (right middle and upper field) Cardiovascular: Regular rate/rhythm, Normal S1 S2 Gastrointestinal: Normal bowel sounds, No tenderness Musculoskeletal: No tenderness Integumentary: No rashes Neurological: Normal speech, Normal tone, Normal affect - Studies Medications List Reviewed: Yes Assessment And Plan - Current Problems (Diagnosis) (1) Hemoptysis Onset Date: 08/14/17 Current Visit: Yes Status: Acute (2) Nicotine dependence Onset Date: 08/14/17 Current Visit: Yes Status: Acute Qualifiers: Nicotine product type: cigarettes Substance use status: unspecified nicotine-induced disorder Qualified Code(s): F17.219 - Nicotine dependence, cigarettes, with unspecified nicotine-induced disorders (3) Pneumonia Onset Date: 08/14/17 Current Visit: Yes Status: Acute Qualifiers: Pneumonia type: due to unspecified organism Laterality: right Lung location: upper lobe of lung Qualified Code(s): J18.1 - Lobar pneumonia, unspecified organism - Plan #1 Tuberculosis: Acid fast bacilli culture was positive. Health care department has been contacted. They are agree to start TB treatment in the hospital and followed up in their clinic upon discharge tomorrow. The patient remain afebrile with normal WBC count. #2 hemoptysis: resolving, continue monitoring.
[2017-08-15] MEDS: ISONIAZID 300 MG TAB PO SCH (15:07)
[2017-08-15] MEDS ORDERED: ETHAMBUTOL HCL 400 MG TAB PO SCH (21:00)
[2017-08-15 21:03] VITALS: O2SAT 100
[2017-08-16 04:19] LABS: Absolute Lymphocytes (CBC) 0.8 K/uL (0.7-4.9); Absolute Monocytes 0.8 K/uL (0.1-1.3); Absolute Neutrophil 5.2 K/uL (1.8-8.0); Basophils % 0.7 % (0-1.3); Eosinophils % 0.1 % (0-4.4); Lymphocytes % 11.4 % (15.3-44.8); MCH 29.8 pg (27.0-35.0); MCV 91.5 fL (80-100); MPV 9.7 fL (7.6-11.3); Monocytes % 11.7 % (3.3-12.3); RBC Red Blood Cell Count 3.82 M/uL (3.86-4.86)
[2017-08-16 04:22] LABS: Magnesium 2.2 mg/dL (1.8-2.5); Potassium 4.8 mEq/L (3.6-5.0)
[2017-08-16] MEDS: PANTOPRAZOLE 40MG TABLET PO SCH (05:38)
[2017-08-16 08:52] VITALS: BP 104/69; TEMP 99.6
[2017-08-16] MEDS: ISONIAZID 300 MG TAB PO SCH (08:59)
[2017-08-16] MEDS: levoFLOXacin 750 MG TAB PO SCH (08:59)
[2017-08-16] MEDS: PYRAZINAMIDE 500 MG TAB PO SCH (09:00)
[2017-08-16] MEDS: ENSURE ENLIVE 237 ML CAN PO SCH (09:00)
--- NOTE | 2017-08-16 10:29 | P.DS ---
Admission Date: 08/11/17 Discharge Date: 08/16/17 Disposition: ROUTINE DISCHARGE Discharge Condition: FAIR Reason for Admission: Cough hemoptysis abnormal x-ray - Problems (1) Hemoptysis Onset Date: 08/14/17 Current Visit: Yes Status: Acute (2) Nicotine dependence Onset Date: 08/14/17 Current Visit: Yes Status: Acute Qualifiers: Nicotine product type: cigarettes Substance use status: unspecified nicotine-induced disorder Qualified Code(s): F17.219 - Nicotine dependence, cigarettes, with unspecified nicotine-induced disorders (3) Pneumonia Onset Date: 08/14/17 Current Visit: Yes Status: Acute Qualifiers: Pneumonia type: due to unspecified organism Laterality: right Lung location: upper lobe of lung Qualified Code(s): J18.1 - Lobar pneumonia, unspecified organism (4) Tuberculosis Current Visit: Yes Status: Acute Brief History of Present Illness: By Dr Anderson The patient is a 52-year-old female with no significant past medical history other than nicotine dependence, who comes in with 1 month of dry cough that has been persistent. The patient states that she was diagnosed with flu; at that time, was treated; and since then, has not had any relief from her cough. She has tried multiple medications including antibiotics and [id number] medications. She denies any significant shortness of breath, fever, chills, or any ill contacts. 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 She has lost unintentional weight in the last few months. The patient did have some episode of hemoptysis, tablespoonful, which prompted her to come to the ER. The patient initially went to the [place] [facility]. She came in as her symptoms were constant, moderate, and progressively worsening. No alleviating or aggravating factors. At [place], CT scan was done, which showed a large right- sided consolidation. The patient was, therefore, transferred to [facility] for further evaluation. Upon arrival, the patient's vital signs were stable. She was afebrile. Her O2 saturations were 100%. Her workup was essentially negative. White count was mildly elevated at 12.5 with neutrophilia. Repeat chest x-ray did show a right-sided consolidation of the upper lobe. The patient was then started on IV antibiotics and referred for admission. When the patient was seen in the ER, she was awake, alert, oriented x3, in some mild distress. Hospital Course: During her stay she was treated empirically for bacterial pneumonia with IV Levaquin. Then acid fast bacilli culture was positive, confirming suspected diagnosis of TB. Dr Cr did a bronch, but cultures from lavage are still pending. However, she was started treatment with Ethambutol, Pyrazinamide, Rifampin and Isoniazide. Sputum culture also reported gram positive cocci. The patient is clinically stable. Health department was contacted, and they will provide her medication. She will be followed up by Dr Cr very close and health depertment. Ms Morales, will be discharge home in stable condition today. Will give a prescription for Levaquin in order to finish treatment initiated in the hospital for potential bacterial pneumonia on top of TB. Vital Signs/Physical Exam: Temp Pulse Resp BP Pulse Ox 99.6 F 102 H 18 104/69 100 08/16/17 08:00 08/16/17 08:00 08/16/17 08:00 08/16/17 08:00 08/16/17 08:00 General: Alert, In no apparent distress HEENT: Atraumatic, PERRLA, EOMI Neck: Supple, JVD not distended Respiratory: Normal air movement, Crackles/rales (right upper lobe) Cardiovascular: Regular rate/rhythm, Normal S1 S2 Gastrointestinal: Normal bowel sounds, No tenderness Musculoskeletal: No tenderness Integumentary: No rashes Neurological: Normal speech, Normal tone, Normal affect Laboratory Data at Discharge: WBC 6.8 K/uL (4.3-10.9) D 08/16/17 03:40 Hgb 11.4 g/dL (12.0-15.0) L 08/16/17 03:40 Hct 35.0 % (36.0-45.0) L 08/16/17 03:40 Plt Count 278 K/uL (152-406) 08/16/17 03:40 PT 14.0 SECONDS (9.5-12.5) H 08/11/17 14:40 INR 1.18 08/11/17 14:40 APTT 26.7 SECONDS (24.3-36.9) 08/11/17 14:40 Sodium 131 mEq/L (135-145) L 08/16/17 03:40 Potassium 4.8 mEq/L (3.6-5.0) 08/16/17 03:40 BUN 18 mg/dL (6-20) 08/16/17 03:40 Creatinine 1.38 mg/dL (0.44-1.00) H 08/16/17 03:40 Glucose 86 mg/dL (65-120) 08/16/17 03:40 Magnesium 2.2 mg/dL (1.8-2.5) 08/16/17 03:40 Total Bilirubin 0.6 mg/dL (0.3-1.2) 08/14/17 03:39 AST 23 IU/L (10-42) 08/14/17 03:39 ALT 13 IU/L (10-60) 08/14/17 03:39 Alkaline Phosphatase 71 IU/L (42-121) 08/14/17 03:39 B-Natriuretic Peptide 27 pg/ml (<=100) 08/11/17 14:40 Home Medications: Isoniazid [Isoniazid*] 300 mg PO DAILY tab 08/16/17 Levofloxacin [Levaquin*] 750 mg PO DAILY #5 tab 08/16/17 Pantoprazole [Protonix Tab*] 40 mg PO DAILYAC #30 tab 08/16/17 Pyrazinamide [Pyrazinamide*] 1,500 mg PO DAILY tab 08/16/17 Rifampin [Rifadin*] 300 mg PO BID cap 08/16/17 New Medications: Levofloxacin [Levaquin*] 750 mg PO DAILY #5 tab Pantoprazole [Protonix Tab*] 40 mg PO DAILYAC #30 tab Diet: Regular Activity: Ad ronald Followup: Calvin Cr MD [ACTIVE - CAN ADMIT] - Time spent managing pt's care (in minutes): 45
--- NOTE | 2017-08-16 12:19 | P.PN ---
Subjective Date of Service: 08/27/17 Chief Complaint: Cough hemoptysis abnormal x-ray Subjective: Improving (Patient is doing well no complaints status post bronchoscopy AFB positive) Review of Systems Unremarkable Physical Examination - Vital Signs Temperature: 99.6 F Blood Pressure: 104/69 Pulse: 102 Respirations: 18 Pulse Ox (%): 100 - Physical Exam General: Alert, Oriented x3 HEENT: Atraumatic Neck: Supple Respiratory: Clear to auscultation bilaterally Cardiovascular: No edema - Studies Medications List Reviewed: Yes Assessment And Plan - Current Problems (Diagnosis) (1) Pneumonia Onset Date: 08/14/17 Status: Acute Plan: Patient admitted with right upper lobe pneumonia bronchoscopy AFB positive also shows sputum biopsy confirms necrotic tissue with AFB plan to start on quadruple antituberculous therapy with a dose of levofloxacin for staffed patient to follow up with is [facility] department 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 Qualifiers: Pneumonia type: due to unspecified organism Laterality: right Lung location: upper lobe of lung Qualified Code(s): J18.1 - Lobar pneumonia, unspecified organism
[2017-08-17 16:49] LABS: HIV 1/2 Antibody Diff Not indicated.; HIV AG/AB 4TH GEN Non-reactive (Non-reactive)
== END 2017-08-16 12:54 | disposition home or self-care (01) | DRG 166 ==
LOC: ER 14:18 → 4TH 16:30
PROVIDERS: ADMIT Physician Assistant; ATTEND Internal Medicine
PROC: 0BBC8ZX Excision of Right Upper Lung Lobe, Via Natural or Artificial Opening Endoscopic, Diagnostic (ICD-10-PCS; 2017-08-14)
PROC: 0B9C8ZX Drainage of Right Upper Lung Lobe, Via Natural or Artificial Opening Endoscopic, Diagnostic (ICD-10-PCS; principal; 2017-08-14 08:00)
DX: A15.9 Respiratory tuberculosis unspecified (principal); E43 Unspecified severe protein-calorie malnutrition; J15.9 Unspecified bacterial pneumonia; Z68.25 Body mass index [BMI] 25.0-25.9, adult; F17.210 Nicotine dependence, cigarettes, uncomplicated
CPT/HCPCS: 36415; 71045; 76000; 80048; 80053; 80076; 80202; 83735; 83880; 84484; 85025; 85610; 85730; 87015; 87040; 87070; 87077; 87102; 87116; 87186; 87205; 87206; 87389; 88108; 88305; 88312; 93005; 94760; 96365; 96366; 99285; J0692; J2370; J2543; J3475; J7030

== ENCOUNTER 2018-05-29 16:00 | Emergency (ER) | payer OTHER, SELFPAY ==
--- NOTE | 2018-05-29 18:00 | RAD REPORT ---
EXAM DESCRIPTION: RAD - Chest Pa And Lat (2 Views) - 05/29/2018 5:35 pm CLINICAL HISTORY: cough, hx of TB, finished treatment Chest pain. COMPARISON: Chest Single View dated 08/14/2017; Chest Single View dated 08/11/2017 FINDINGS: Mild linear opacities are seen in the right apex, considerably diminished since the compar ative study. This may represent a small amount of postinflammatory residual. The heart is normal in s ize. No displaced fractures.
--- NOTE | 2018-05-29 18:06 | ER ---
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 Patient aj reports active TB last year, completed treatment. Patient reports that she was sent to ER by her employer because active TB couldn't be ruled out on chest xray. Transition of care: patient was not received from another setting of care. Onset of symptoms was May 27, 2018. Risk Assessment: Do you want to hurt yourself or someone else? Patient reports no desire to harm self or others. Initial Sepsis Screen: Does the patient meet any 2 criteria? No. Patient's initial sepsis screen is negative. Does the patient have a suspected source of infection? No. Patient's initial sepsis screen is negative. Care prior to arrival: None. 16:10 Method Of Arrival: Ambulatory 16:10 Acuity: BLAIR 3 Triage Assessment: 16:12 General: Appears in no apparent distress. comfortable, Behavior is calm, cooperative, aj appropriate for age. Pain: Denies pain. Neuro: Level of Consciousness is awake, alert, obeys commands, Oriented to person, place, time, situation, Appropriate for age. Respiratory: Reports cough that is Airway is patent Trachea midline Respiratory effort is even, unlabored, Respiratory pattern is regular, symmetrical. Derm: Skin is intact, is healthy with good turgor, Skin is pink, warm \T\ dry. normal. DIRECTOR AND PROFESSOR: 16:12 LMP N/A - Post-menopause aj Historical: - Allergies: 16:12 No Known Allergies; aj - Home Meds: 16:12 None [Active]; aj - PMHx: 16:12 tuberculosis; aj - PSHx: 16:12 None; aj - Immunization history:: Adult Immunizations up to date. - Social history:: Smoking status: Patient/guardian denies using tobacco. - Ebola Screening: : Patient negative for fever greater than or equal to 101.5 degrees Fahrenheit, and additional compatible Ebola Virus Disease symptoms Patient denies exposure to infectious person Patient denies travel to an Ebola-affected area in the 21 days before illness onset No symptoms or risks identified at this time. - Family history:: not pertinent. - Hospitalizations: : No recent hospitalization is reported. Screenin:20 Abuse screen: Denies threats or abuse. Denies injuries from another. Nutritional ca1 screening: No deficits noted. Tuberculosis screening: Has had TB. Possible symptoms: None Pt had completed treatment on April. . Fall Risk None identified. Assessment: 16:20 General: Appears in no apparent distress. comfortable, Behavior is calm, cooperative, ca1 appropriate for age. Pain: Denies pain. Neuro: Level of Consciousness is awake, alert, obeys commands, Oriented to person, place, time, situation. Cardiovascular: Heart tones S1 S2 present Capillary refill < 3 seconds Patient's skin is warm and dry. Respiratory: Airway is patent Respiratory effort is even, unlabored, Respiratory pattern is regular, symmetrical, Breath sounds are coarse in right posterior upper lobe and right posterior middle lobe. GI: No signs and/or symptoms were reported involving the gastrointestinal system. : No signs and/or symptoms were reported regarding the genitourinary system. EENT: No signs and/or symptoms were reported regarding the EENT system. Derm: Skin is intact, Skin is pink, warm \T\ dry. Musculoskeletal: Circulation, motion, and sensation intact. 17:20 Reassessment: Patient appears in no apparent distress at this time. Patient and/or ca1 family updated on plan of care and expected duration. Pain level reassessed. Patient is alert, oriented x 3, equal unlabored respirations, skin warm/dry/pink. Pt taken to Xray. 17:34 Reassessment: Pt back from Xray. Awaiting results. ca1 Vital Signs: 16:12 BP 176 / 97; Pulse 99; Resp 20; Temp 97.7; Pulse Ox 99% on R/A; Weight 83.91 kg; Height aj 5 ft. 11 in. (180.34 cm); 17:28 BP 148 / 81; Pulse 80; Resp 19; Pulse Ox 100% on R/A; ca1 16:12 Body Mass Index 25.80 (83.91 kg, 180.34 cm) aj ED Course: 16:02 Patient arrived in ED. rg4 16:12 Triage completed. aj 16:12 Arm band placed on left wrist. Patient placed in an exam room. aj 16:19 Jermaine Rebolledo MD is Attending Physician. rn 16:20 Patient has correct armband on for positive identification. Placed in gown. Bed in low ca1 position. Call light in reach. Side rails up X 1. Pulse ox on. NIBP on. 16:28 Melissa Wan RN is Primary Nurse. ca1 17:26 Patient moved to radiology via wheelchair. ag1 17:35 XRAY Chest Pa And Lat (2 Views) In Process Unspecified. EDMS 18:11 No provider procedures requiring assistance completed. Patient did not have IV access ca1 during this emergency room visit. Administered Medications: No medications were administered Outcome: 18:05 Discharge ordered by MD. rn 18:11 Discharged to home ambulatory. ca1 18:11 Condition: stable 18:11 Discharge instructions given to patient, Instructed on discharge instructions, follow up and referral plans. Demonstrated understanding of instructions, follow-up care. 18:12 Patient left the ED. ca1 Signatures: Dispatcher [employer] EDMS Alcira Haile RN Jermaine Peralta MD MD rn Gallaway, Ashley ag1 Mary Jo Cm rg4 Meilssa Wan RN RN ca1 Corrections: (The following items were deleted from the chart) 17:35 17:28 Reassessment: Patient appears in no apparent distress at this time. Patient ca1 and/or family updated on plan of care and expected duration. Pain level reassessed. Patient is alert, oriented x 3, equal unlabored respirations, skin warm/dry/pink. Pt taken to Xray. ca1 18:26 16:20 Tuberculosis screening: No symptoms or risk factors identified. ca1 ca1
--- NOTE | 2018-05-29 18:07 | EDPHYS ---
Physician Documentation [facility] Name: Laura Morales Age: 53 yrs Sex: Female : 1965 Arrival Date: 05/29/2018 Time: 16:02 Bed 28 Private MD: ED Physician Jermaine Rebolledo HPI: 05/29 17:13 This 53 yrs old Black Female presents to ER via Ambulatory with complaints of Cough. rn 17:13 The patient or guardian reports cough. Onset: The symptoms/episode began/occurred 1 rn week(s) ago. Severity of symptoms: At their worst the symptoms were mild, in the emergency department the symptoms have improved. Modifying factors: The symptoms are alleviated by nothing, the symptoms are aggravated by nothing. The patient has experienced a previous episode. Reports coughed 1 time 1 week ago, had low grade temp, told employer, and sent here because hx of TB, cleared as of May 14 with neg blood and sputum samples, has finished treatment. Denies feeling ill, no hemoptysis. 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 Denies sob or current cough. . 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 - Social history:: Smoking status: Patient/guardian denies using tobacco. - Ebola Screening: : Patient negative for fever greater than or equal to 101.5 degrees Fahrenheit, and additional compatible Ebola Virus Disease symptoms Patient denies exposure to infectious person Patient denies travel to an Ebola-affected area in the 21 days before illness onset No symptoms or risks identified at this time. - Family history:: not pertinent. - Hospitalizations: : No recent hospitalization is reported. ROS: 17:13 Constitutional: Negative for fever, chills, and weight loss, Eyes: Negative for injury, rn pain, redness, and discharge, Neck: Negative for injury, pain, and swelling, Cardiovascular: Negative for chest pain, palpitations, and edema, Respiratory: Negative for shortness of breath, wheezing, and pleuritic chest pain, Abdomen/GI: Negative for abdominal pain, nausea, vomiting, diarrhea, and constipation, MS/Extremity: Negative for injury and deformity, Skin: Negative for injury, rash, and discoloration, Neuro: Negative for headache, weakness, numbness, tingling, and seizure. Exam: 17:13 Constitutional: This is a well developed, well nourished patient who is awake, alert, rn and in no acute distress. Smiling and laughing. Head/Face: Normocephalic, atraumatic. Cardiovascular: Regular rate and rhythm, No JVD. No pulse deficits. Respiratory: Lungs have equal breath sounds bilaterally, clear to auscultation. No increased work of breathing, no retractions or nasal flaring. Vital Signs: 16:12 BP 176 / 97; Pulse 99; Resp 20; Temp 97.7; Pulse Ox 99% on R/A; Weight 83.91 kg; Height aj 5 ft. 11 in. (180.34 cm); 17:28 BP 148 / 81; Pulse 80; Resp 19; Pulse Ox 100% on R/A; ca1 16:12 Body Mass Index 25.80 (83.91 kg, 180.34 cm) aj MDM: 16:20 Patient medically screened. rn 18:04 Differential Diagnosis: Viral Syndrome Pneumonia Other cough, post infectious scarring. rn Data reviewed: vital signs, nurses notes, radiologic studies, plain films, and as a result, I will discharge patient. Counseling: I had a detailed discussion with the patient and/or guardian regarding: the historical points, exam findings, and any diagnostic results supporting the discharge/admit diagnosis, radiology results, the need for outpatient follow up, to return to the emergency department if symptoms worsen or persist or if there are any questions or concerns that arise at home. Special discussion: I discussed with the patient/guardian in detail that at this point there is no indication for admission to the hospital. It is understood, however, that if the symptoms persist or worsen the patient needs to return immediately for re-evaluation. ED course: CXR much improved, has completed TB therapy and cleared 2 weeks ago, will dc home. . 05/29 16:40 Order name: XRAY Chest Pa And Lat (2 Views); Complete Time: 18:03 rn Administered Medications: No medications were administered Disposition: 05/29/18 18:05 Discharged to Home. 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 - Condition is Stable. - Discharge Instructions: Cough, Adult. - Medication Reconciliation Form, Thank You Letter, Antibiotic Education, Prescription Opioid Use form. - Follow up: Private Physician; When: As needed; Reason: Recheck today's complaints, Re-evaluation by your physician. - Problem is new. - Symptoms have improved. Signatures: Dispatcher [employer] EDAlcira Silveira RN RN Jermaine French MD MD rn Acob, ERROL Torres RN ca1 Corrections: (The following items were deleted from the chart) 18:12 18:05 05/29/2018 18:05 Discharged to Home. Impression: Cough; Post-infectious scarring ca1 of right upper lobe of lung. Condition is Stable. Forms are Medication Reconciliation Form, Thank You Letter, Antibiotic Education, Prescription Opioid Use. Follow up: Private Physician; When: As needed; Reason: Recheck today's complaints, Re-evaluation by your physician. Problem is new. Symptoms have improved. rn
[2018-05-29 18:49] VITALS: TEMP 97.7
[2018-05-29 18:50] VITALS: BP 148/81; O2SAT 100
== END 2018-05-29 18:12 | disposition home or self-care (01) ==
LOC: ER 16:00
DX: R05 Cough (principal); J98.4 Other disorders of lung
CPT/HCPCS: 71046; 99283